=== PATIENT | male | born 1960 | race Caucasian/White ===

== ENCOUNTER 2019-09-18 08:26 | Outpatient (RCR) | payer OTHER ==
[~2019-09-18 08:26] MED LIST: ACTOS 45MG45 MG/TAB PO; ACTOS30 MG PO; ASPIRIN 81M81 MG/TA2 PO; ASPIRIN E.C. 8181 MG PO; B/P MED; BENADRYL50 MG PO; BYETTA; DUO-KAPS1 CAP PO; GABARONE300 MG PO; GLIPIZIDE5 M1 PO; GLUCOPHAGE; GLUCOPHAGE1000 MG PO; GLUCOTROL XL10 MG PO; GRALISE300 MG PO; HUMALOG PEN100 U/ML SC; K-99595 MG PO; LANTUS100 U/ML SC; LISINOPRIL20 MG PO; LYRICA 100MG C100 M1 PO; LYRICA 100MG C100 MG PO; MEDROL 4MG DOSPA4 MG PO; NEXIUM 40MG40 MG PO; NORCO 325 MG-51 TAB PO; PERCOCET 325 MG1 TA2 PO; PRINIVIL40 MG PO; SIMVASTATIN20 MG PO; TRILIPIX 135MG PO; VALTREX1 GM PO; VICTOZA6 MG/ML SC; ZOCOR 20MG20 MG PO; [UNRECOGNIZED DRUG - SUPPLY]
== END 2019-10-14 12:48 | disposition home or self-care (01) ==
LOC: WSOH 08:26
DX: M79.672 Pain in left foot (principal); Z98.890 Other specified postprocedural states; E11.9 Type 2 diabetes mellitus without complications; Z79.4 Long term (current) use of insulin; I10 Essential (primary) hypertension; E78.00 Pure hypercholesterolemia, unspecified; Y99.0 Civilian activity done for income or pay

== ENCOUNTER 2021-03-16 08:06 | Day surgery (SDC) | payer BC ==
[~2021-03-16] VITALS: Ht 185.4 cm; Wt 147.5 kg
[~2021-03-16 08:06] MED LIST changes: +NEXIUM 20MG20 MG PO; -NEXIUM 40MG40 MG PO
[2021-03-16 09:06] VITALS: BP 140/91; PULSE 98; TEMP 97.4
[2021-03-16 09:06] LABS: BASO # 0.1 K/mm3 (0.0-0.2); BASO % 0.9 % (0.0-2.0); EOS # 0.2 K/mm3 (0.0-0.7); EOS % 4.2 % (0-4.0); GRAN # 3.3 K/mm3 (1.4-6.5); GRAN % 57.4 % (42.2-75.2); HEMATOCRIT 50.6 % (42.0-52.0); HEMOGLOBIN 16.7 g/dl (13.5-18.0); LYMPH # 1.6 K/mm3 (1.2-3.4); LYMPH % 26.9 % (20.0-51.0); MEAN CELL VOLUME 93 fl (80.0-100.0); MEAN CORPUSCULAR HEMOGLOBIN 31 pg (27.0-31.0); MEAN CORPUSCULAR HGB CONC 33 g/dl (33.0-37.0); MEAN PLATELET VOLUME 10.3 fl (7.4-10.4); MONO # 0.6 K/mm3 (0.1-0.6); MONO % 10.1 % (1.7-9.3); PLATELET COUNT 212 K/mm3 (130-400); RED BLOOD COUNT 5.46 M/mm3 (4.20-5.60); REDCELL DISTRIBUTION WIDTH-CV 13.5 % (11.5-14.5)
[2021-03-16 09:15] LABS: INR 1.2 (0.8-3.0)
[2021-03-16 09:18] LABS: PARTIAL THROMBOPLASTIN TIME 39.5 SECONDS (26.0-37.0)
[2021-03-16 09:35] LABS: CALCIUM 9.5 mg/dL (8.4-10.2); CREATININE, serum 1.47 mg/dL (0.72-1.25); MAGNESIUM 1.6 mg/dL (1.6-2.6)
[2021-03-16] MEDS ORDERED: NEURONTIN300 MG/CAP PO (09:37)
[2021-03-16] MEDS ORDERED: BENADRYL50 MG PO (09:42)
[2021-03-16] MEDS ORDERED: FARXIGA10 PO (09:43)
[2021-03-16] MEDS ORDERED: TRICOR145 MG PO (09:44)
[2021-03-16 09:45] VITALS: BP 132/74; PULSE 78
[2021-03-16] MEDS ORDERED: GLUCOSAMINE SU500 M2 PO (09:46)
[2021-03-16] MEDS ORDERED: ELIQUIS 5MG PO (09:48)
[2021-03-16] MEDS ORDERED: MASON NATURAL1200 MG PO (09:50)
[2021-03-16] MEDS ORDERED: NOVOLOG FLEX100 U/ML SQ (09:51)
[2021-03-16] MEDS ORDERED: DESYREL 100MG100 MG PO (09:55)
[2021-03-16] MEDS ORDERED: TOPROL XL 25MG25 MG PO (09:55)
[2021-03-16 09:56] LABS: THYROID STIMULATING HORMONE 1.485 uIU/mL (0.350-4.940)
[2021-03-16] MEDS ORDERED: VALTREX1 GM PO (09:56)
[2021-03-16 10:00] VITALS: BP 121/84; PULSE 71
[2021-03-16] MEDS ORDERED: MULTAQ400 MG PO (10:03)
[2021-03-16 10:15] VITALS: BP 110/53; PULSE 79
[2021-03-16 10:30] VITALS: BP 123/75; PULSE 75
--- NOTE | 2021-03-16 11:02 | NUR ---
Discussed discharge instrucions with patient and . They both verbalized understanding and denied questions. They are aware of a new med being called in their pharmacy, and advised to call to check readiness before going to car pick up driver. Monitors DCd, patient changed into clothing, IV DC'd intact, patient escorted to front doors via wheelchair.
== END 2021-03-16 12:32 ==
LOC: COL.CAR 08:06
PROVIDERS: Internal Medicine Cardiovascular Disease
DX: I48.91 Unspecified atrial fibrillation (principal); E11.42 Type 2 diabetes mellitus with diabetic polyneuropathy; I10 Essential (primary) hypertension; E78.5 Hyperlipidemia, unspecified; R12 Heartburn; I08.1 Rheumatic disorders of both mitral and tricuspid valves; Z79.4 Long term (current) use of insulin; Z79.84 Long term (current) use of oral hypoglycemic drugs; Z79.899 Other long term (current) drug therapy; Z79.82 Long term (current) use of aspirin; Z79.01 Long term (current) use of anticoagulants
CPT/HCPCS: J2704; J7030

== ENCOUNTER 2021-05-02 06:48 | Day surgery (SDC) | payer BC ==
[2021-05-02] VITALS (7 sets, daily range): BP systolic 113–147; BP diastolic 77–96; PULSE 64–88; TEMP 98.2
[~2021-05-02] VITALS: Ht 185.5 cm; Wt 153.9 kg
[~2021-05-02 06:48] MED LIST changes: +DESYREL 100MG100 MG PO; +ELIQUIS 5MG PO; +FARXIGA10 PO; +GLUCOSAMINE SU500 M2 PO; +MASON NATURAL1200 MG PO; +MULTAQ400 MG PO; +NEURONTIN300 MG/CAP PO; +NOVOLOG FLEX100 U/ML SQ; +TOPROL XL 25MG25 MG PO; +TRICOR145 MG PO
[2021-05-02 08:04] LABS: HEMATOCRIT 48.9 % (42.0-52.0); HEMOGLOBIN 16.2 g/dl (13.5-18.0); MEAN CELL VOLUME 92 fl (80.0-100.0); MEAN CORPUSCULAR HEMOGLOBIN 31 pg (27.0-31.0); MEAN CORPUSCULAR HGB CONC 33 g/dl (33.0-37.0); MEAN PLATELET VOLUME 10.2 fl (7.4-10.4); PLATELET COUNT 208 K/mm3 (130-400); RED BLOOD COUNT 5.29 M/mm3 (4.20-5.60); REDCELL DISTRIBUTION WIDTH-CV 13.2 % (11.5-14.5)
[2021-05-02] MEDS ORDERED: MULTAQ400 MG PO (08:10)
[2021-05-02 08:13] LABS: INR 1.2 (0.8-3.0); PROTHROMBIN TIME 13.5 SECONDS (9.7-12.8)
[2021-05-02 08:15] LABS: PARTIAL THROMBOPLASTIN TIME 37.5 SECONDS (26.0-37.0)
[2021-05-02 08:19] LABS: CALCIUM 9.4 mg/dL (8.4-10.2); CREATININE, serum 1.39 mg/dL (0.72-1.25); MAGNESIUM 1.6 mg/dL (1.6-2.6); POTASSIUM 4.3 mmol/L (3.5-4.5)
[2021-05-02 08:40] LABS: THYROID STIMULATING HORMONE 1.423 uIU/mL (0.350-4.940)
--- NOTE | 2021-05-02 11:00 | NUR ---
Discharge instructions given to pt.Pt verbalizes understanding.INT removed,catheter tip intact.Pt escorted out via wheelchair by this nurse.
== END 2021-05-02 11:49 ==
LOC: COL.CAR 06:48
PROVIDERS: Internal Medicine Cardiovascular Disease
DX: I48.91 Unspecified atrial fibrillation (principal); I10 Essential (primary) hypertension; E11.42 Type 2 diabetes mellitus with diabetic polyneuropathy; E78.5 Hyperlipidemia, unspecified; K21.9 Gastro-esophageal reflux disease without esophagitis; Z79.01 Long term (current) use of anticoagulants; Z79.4 Long term (current) use of insulin; Z79.84 Long term (current) use of oral hypoglycemic drugs; Z79.899 Other long term (current) drug therapy
CPT/HCPCS: J2704; J7030